=== PATIENT | male | born 1985 | race Two or more races ===

== ENCOUNTER 2018-02-03 16:36 | Emergency (ER) | payer SELFPAY ==
[~2018-02-03] VITALS: Ht 165.1 cm; Wt 79.8 kg
[2018-02-03 16:45] VITALS: BP 140/95
[2018-02-03] MEDS ORDERED: cefTRIAXone 1GM/10ml IVPUSH 10 ML IV ONE (17:45)
[2018-02-03] MEDS ORDERED: methylPREDNISolone SOD SUCC 125 MG/2 ML VL IV ONE (17:45)
[2018-02-03] MEDS ORDERED: KETOROLAC TROMETH 30 MG/ML 1ML VIAL IV ONE (17:45)
[2018-02-03] MEDS ORDERED: CLINDAMYCIN 900MG IV 50 ML IV ONE (17:45)
[2018-02-03] MEDS ORDERED: SODIUM CHLORIDE 0.9% 1,000 ML IV ONE (18:15)
== END 2018-02-03 18:57 | disposition home or self-care (01) ==
LOC: ER 16:45
DX: J03.90 Acute tonsillitis, unspecified (principal)
CPT/HCPCS: 96365; 96375; 99284; J1885; J2930; J3490; J7030